=== PATIENT | female | born 1970 | race Caucasian/White ===

== ENCOUNTER 2018-08-03 21:35 | Inpatient (IN) | payer MEDICAID ==
[2018-08-03 22:30] LABS: ADD MAN DIFF? NO
[2018-08-03 22:31] LABS: BASOPHILS % 0.3 % (0.0-2.0); EOSINOPHILS # 0.3 10^3/ul (0.0-0.5); EOSINOPHILS % 2.6 % (0.0-7.0); HEMATOCRIT 40.2 % (37.0-47.0); HEMOGLOBIN 13.4 g/dl (12.0-16.0); LYMPHOCYTES # 1.9 10^3/ul (0.8-2.9); LYMPHOCYTES % 16.9 % (15.0-51.0); MEAN CORPUSCULAR HEMOGLOBIN 29.2 pg (29.0-33.0); MEAN CORPUSCULAR HGB CONC 33.3 g/dl (32.0-37.0); MEAN CORPUSCULAR VOLUME 87.6 fl (82.0-101.0); MEAN PLATELET VOLUME 11.2 fl (7.4-10.4); MONOCYTES % 8.8 % (0.0-11.0); NEUTROPHIL # 7.8 10^3/ul (1.6-7.5); NEUTROPHILS % 70.8 % (39.0-77.0); PLATELET COUNT 227 10^3/UL (140-415); RED BLOOD COUNT 4.59 10^6/ul (4.20-5.40); RED CELL DISTRIBUTION WIDTH 18.2 % (11.5-14.5); URINE BLOOD (Dip) POC 2+ (NEGATIVE); URINE GLUCOSE (Dip) POC Negative (NEGATIVE); URINE KETONES (Dip) POC Negative (NEGATIVE); URINE LEUKOCYTE EST (Dip) POC 2+ (NEGATIVE); URINE NITRITE (Dip) POC Negative (NEGATIVE); URINE TOTAL PROTEIN POC 2+ (NEGATIVE)
[2018-08-03 22:31] LABS: URINE PH (Dip) POC 5.5 (5.0-8.5)
[2018-08-03] MEDS: ONDANSETRON 4 MG INJ IV (22:31)
[2018-08-03] MEDS: HYDROmorphONE 1 MG/ML SYG IV (22:33)
[2018-08-03 22:50] LABS: ALANINE AMINOTRANSFERASE 19 IU/L (13-69); ALBUMIN 3.6 g/dl (3.3-4.9); ALKALINE PHOSPHATASE 125 IU/L (42-121); ASPARTATE AMINO TRANSFERASE 20 IU/L (15-46); BILIRUBIN,INDIRECT 0.2 mg/dl (0-1.1); BILIRUBIN,TOTAL 0.2 mg/dl (0.2-1.3); BLOOD UREA NITROGEN 14 mg/dl (7-20); CALCIUM 9.4 mg/dl (8.4-10.2); CARBON DIOXIDE 32 mmol/L (21-31); CHLORIDE 102 mmol/L (97-110); CREATININE 0.63 mg/dl (0.44-1.00); GLUCOSE 105 mg/dl (70-220); LIPASE 101 U/L (23-300); POTASSIUM 3.6 mmol/L (3.5-5.1); SODIUM 140 mmol/L (135-144); TOTAL PROTEIN 7.2 g/dl (6.1-8.1)
[2018-08-03] MEDS: HYDROmorphONE 0.5 MG/0.5 ML SYG IV (23:05)
[2018-08-03] MEDS: LEVOFLOXACIN 750MG/D5W (PMX) 150 ML IVPB (23:43)
[2018-08-04] MEDS ORDERED: NACL 0.9% 3 ML SYG IV
[2018-08-04] MEDS ORDERED: BISACODYL (EC) 5 MG TAB PO
[2018-08-04] MEDS ORDERED: ONDANSETRON 4 MG INJ IV
[2018-08-04] MEDS ORDERED: DOCUSATE SODIUM 100 MG CAP PO
[2018-08-04 00:04] LABS: TROPONIN-I < 0.012 ng/ml (0.000-0.120)
[2018-08-04 00:04] LABS: B-TYPE NATRIURETIC PEPTIDE 78 PG/ML (0-125)
[2018-08-04] MEDS: HYDROCODONE/APAP (5/325) TAB PO ×2 (00:05→19:34)
[2018-08-04] MEDS: HYDROmorphONE 1 MG/ML SYG IV ×6 (01:16→22:28)
[2018-08-04] MEDS: HYDROmorphONE 2 MG TAB PO ×4 (02:32→20:37)
[2018-08-04 05:31] LABS: ADD MAN DIFF? NO
[2018-08-04 05:39] LABS: BASOPHILS % 0.2 % (0.0-2.0); EOSINOPHILS # 0.3 10^3/ul (0.0-0.5); EOSINOPHILS % 2.8 % (0.0-7.0); HEMATOCRIT 37.2 % (37.0-47.0); HEMOGLOBIN 12.1 g/dl (12.0-16.0); LYMPHOCYTES # 1.5 10^3/ul (0.8-2.9); MEAN CORPUSCULAR HEMOGLOBIN 28.9 pg (29.0-33.0); MEAN CORPUSCULAR HGB CONC 32.5 g/dl (32.0-37.0); MEAN CORPUSCULAR VOLUME 88.8 fl (82.0-101.0); MEAN PLATELET VOLUME 11.4 fl (7.4-10.4); MONOCYTE # 0.8 10^3/ul (0.3-0.9); MONOCYTES % 8.8 % (0.0-11.0); NEUTROPHIL # 6.9 10^3/ul (1.6-7.5); NEUTROPHILS % 71.7 % (39.0-77.0); PLATELET COUNT 193 10^3/UL (140-415); RED BLOOD COUNT 4.19 10^6/ul (4.20-5.40); RED CELL DISTRIBUTION WIDTH 18.4 % (11.5-14.5)
[2018-08-04 05:39] LABS: WHITE BLOOD COUNT 9.6 10^3/ul (4.8-10.8)
[2018-08-04 06:03] LABS: ALANINE AMINOTRANSFERASE 19 IU/L (13-69); ALBUMIN 3.4 g/dl (3.3-4.9); ALBUMIN/GLOBULIN RATIO 1.13; ALKALINE PHOSPHATASE 99 IU/L (42-121); ASPARTATE AMINO TRANSFERASE 16 IU/L (15-46); BILIRUBIN,INDIRECT 0.2 mg/dl (0-1.1); BILIRUBIN,TOTAL 0.2 mg/dl (0.2-1.3); BLOOD UREA NITROGEN 14 mg/dl (7-20); CALCIUM 8.8 mg/dl (8.4-10.2); CARBON DIOXIDE 29 mmol/L (21-31); CHLORIDE 104 mmol/L (97-110); CREATININE 0.64 mg/dl (0.44-1.00); GLUCOSE 139 mg/dl (70-220); POTASSIUM 3.6 mmol/L (3.5-5.1); SODIUM 142 mmol/L (135-144); TOTAL PROTEIN 6.4 g/dl (6.1-8.1)
[2018-08-04] MEDS: ENOXAPARIN 30 MG/0.3 ML SYG SC (08:38)
[2018-08-04 09:34] LABS: ANION GAP 9 (5-13)
[2018-08-04 10:16] LABS: ANION GAP 6 (5-13)
[2018-08-04 11:14] LABS: B-TYPE NATRIURETIC PEPTIDE 43 PG/ML (0-125)
[2018-08-04 17:12] LABS: AMPHETAMINE/METHAMPHETAMINE Negative (NEGATIVE); BARBITURATES Negative (NEGATIVE); BENZODIAZEPINES Negative (NEGATIVE); CANNABINOIDS Negative (NEGATIVE); COCAINE Negative (NEGATIVE); OPIATES Positive (NEGATIVE)
[2018-08-04] MEDS: PANTOPRAZOLE (EC) 40 MG TAB PO (18:35)
[2018-08-04 19:47] LABS: OCCULT BLOOD STOOL NEGATIVE (NEGATIVE)
[2018-08-04] MEDS: GABAPENTIN 300 MG CAP PO (20:37)
[2018-08-05] MEDS: HYDROmorphONE 2 MG TAB PO ×5 (00:24→21:27)
[2018-08-05] MEDS: HYDROCODONE/APAP (5/325) TAB PO ×2 (01:41→09:11)
[2018-08-05] MEDS: HYDROmorphONE 1 MG/ML SYG IV ×3 (03:00→12:04)
[2018-08-05 05:11] LABS: ADD MAN DIFF? NO
[2018-08-05 05:17] LABS: BASOPHILS % 0.3 % (0.0-2.0); EOSINOPHILS # 0.3 10^3/ul (0.0-0.5); EOSINOPHILS % 3.3 % (0.0-7.0); HEMATOCRIT 38.7 % (37.0-47.0); HEMOGLOBIN 12.5 g/dl (12.0-16.0); LYMPHOCYTES # 1.5 10^3/ul (0.8-2.9); LYMPHOCYTES % 16.6 % (15.0-51.0); MEAN CORPUSCULAR HGB CONC 32.3 g/dl (32.0-37.0); MEAN CORPUSCULAR VOLUME 89.8 fl (82.0-101.0); MEAN PLATELET VOLUME 11.5 fl (7.4-10.4); MONOCYTES % 11.1 % (0.0-11.0); NEUTROPHILS % 68.1 % (39.0-77.0); PLATELET COUNT 199 10^3/UL (140-415); RED BLOOD COUNT 4.31 10^6/ul (4.20-5.40); RED CELL DISTRIBUTION WIDTH 18.5 % (11.5-14.5)
[2018-08-05 05:17] LABS: WHITE BLOOD COUNT 8.8 10^3/ul (4.8-10.8)
[2018-08-05 05:40] LABS: PHOSPHORUS 4.6 mg/dl (2.5-4.9)
[2018-08-05 05:40] LABS: MAGNESIUM 2.1 mg/dl (1.7-2.5)
[2018-08-05 05:49] LABS: ALANINE AMINOTRANSFERASE 26 IU/L (13-69); ALBUMIN 3.2 g/dl (3.3-4.9); ALKALINE PHOSPHATASE 102 IU/L (42-121); ANION GAP 3 (5-13); ASPARTATE AMINO TRANSFERASE 19 IU/L (15-46); BILIRUBIN,INDIRECT 0.4 mg/dl (0-1.1); BILIRUBIN,TOTAL 0.4 mg/dl (0.2-1.3); BLOOD UREA NITROGEN 14 mg/dl (7-20); CALCIUM 9.1 mg/dl (8.4-10.2); CARBON DIOXIDE 33 mmol/L (21-31); CHLORIDE 102 mmol/L (97-110); GLUCOSE 102 mg/dl (70-220); POTASSIUM 4.2 mmol/L (3.5-5.1); SODIUM 138 mmol/L (135-144); TOTAL PROTEIN 6.4 g/dl (6.1-8.1)
[2018-08-05] MEDS: PANTOPRAZOLE (EC) 40 MG TAB PO ×2 (06:43→17:49)
[2018-08-05] MEDS: metFORMIN 500 MG TAB PO (07:57)
[2018-08-05] MEDS: GABAPENTIN 300 MG CAP PO ×2 (08:02→21:27)
[2018-08-05] MEDS: ACETAMINOPHEN 325 MG TAB PO (21:27)
[2018-08-06] MEDS: HYDROmorphONE 2 MG TAB PO ×3 (02:36→11:52)
[2018-08-06 05:32] LABS: ADD MAN DIFF? NO
[2018-08-06 05:41] LABS: BASOPHILS % 0.3 % (0.0-2.0); EOSINOPHILS # 0.3 10^3/ul (0.0-0.5); EOSINOPHILS % 3.1 % (0.0-7.0); HEMATOCRIT 39.6 % (37.0-47.0); HEMOGLOBIN 12.7 g/dl (12.0-16.0); LYMPHOCYTES # 1.6 10^3/ul (0.8-2.9); LYMPHOCYTES % 16.8 % (15.0-51.0); MEAN CORPUSCULAR HEMOGLOBIN 28.6 pg (29.0-33.0); MEAN CORPUSCULAR HGB CONC 32.1 g/dl (32.0-37.0); MEAN CORPUSCULAR VOLUME 89.2 fl (82.0-101.0); MEAN PLATELET VOLUME 11.8 fl (7.4-10.4); MONOCYTE # 0.9 10^3/ul (0.3-0.9); NEUTROPHIL # 6.5 10^3/ul (1.6-7.5); NEUTROPHILS % 69.3 % (39.0-77.0); PLATELET COUNT 210 10^3/UL (140-415); RED BLOOD COUNT 4.44 10^6/ul (4.20-5.40); RED CELL DISTRIBUTION WIDTH 18.5 % (11.5-14.5)
[2018-08-06 05:41] LABS: WHITE BLOOD COUNT 9.4 10^3/ul (4.8-10.8)
[2018-08-06] MEDS: PANTOPRAZOLE (EC) 40 MG TAB PO (06:00)
[2018-08-06 06:01] LABS: PHOSPHORUS 5.2 mg/dl (2.5-4.9)
[2018-08-06 06:09] LABS: ANION GAP 10 (5-13); BLOOD UREA NITROGEN 13 mg/dl (7-20); CALCIUM 9.4 mg/dl (8.4-10.2); CARBON DIOXIDE 30 mmol/L (21-31); CHLORIDE 101 mmol/L (97-110); GLUCOSE 152 mg/dl (70-220); POTASSIUM 3.9 mmol/L (3.5-5.1); SODIUM 141 mmol/L (135-144)
[2018-08-06] MEDS: GABAPENTIN 300 MG CAP PO (09:03)
[2018-08-06] MEDS: metFORMIN 500 MG TAB PO (09:03)
[2018-08-06] MEDS: ENOXAPARIN 30 MG/0.3 ML SYG SC (09:06)
== END 2018-08-06 12:35 | disposition home or self-care (01) | DRG 755 ==
LOC: MS1 23:09 → E/R 21:35
DX: C53.9 Malignant neoplasm of cervix uteri, unspecified (principal); K92.1 Melena; Z68.41 Body mass index [BMI] 40.0-44.9, adult; N39.0 Urinary tract infection, site not specified; C77.5 Secondary and unspecified malignant neoplasm of intrapelvic lymph nodes; C77.2 Secondary and unspecified malignant neoplasm of intra-abdominal lymph nodes; E11.9 Type 2 diabetes mellitus without complications; I11.0 Hypertensive heart disease with heart failure; I50.9 Heart failure, unspecified; F20.9 Schizophrenia, unspecified; E66.9 Obesity, unspecified; Z79.899 Other long term (current) drug therapy; E78.5 Hyperlipidemia, unspecified
CPT/HCPCS: 36415; 70450; 80048; 80053; 80307; 81003; 81025; 82270; 82962; 83036; 83690; 83735; 83880; 84100; 84484; 85025; 87081; 87086; 93005; 96374; 96375; 96376; 99285-25